=== PATIENT | male | born 1965 | race African-American/Black ===

== ENCOUNTER 2019-06-08 12:50 | Inpatient (IN) | payer MEDICAID, OTHER ==
[~2019-06-08] VITALS: Ht 185.4 cm; Wt 138.8 kg
[2019-06-08] MEDS ORDERED: MORPHINE SULFATE 4 MG/ML CPJ (NOT FOR IM USE) IV STA (14:34)
[2019-06-08] MEDS ORDERED: KETOROLAC 30MG/ML VIAL IV STA (14:34)
[2019-06-08 15:35] LABS: BASOPHILS % 0.7 % (0.0-2.0); EOSINOPHILS % 0.5 % (0.0-5.0); HEMATOCRIT. 45.3 % (42.0-52.0); HEMOGLOBIN. 15.4 g/dL (14.0-18.0); LYMPHOCYTES % 26.5 % (20.0-50.0); MEAN CORPUSCULAR HEMOGLOBIN 29.5 pg (28.0-32.0); MEAN CORPUSCULAR VOLUME 86.7 fL (80.0-94.0); MEAN PLATELET VOLUME 9.3 fl (7.4-10.4); MONOCYTES % 5.8 % (2.0-8.0); NEUTROPHILS % 66.5 % (40.0-76.0); PLATELET 239 x1000/uL (130-400); RED BLOOD CELL COUNT 5.22 mill/uL (4.7-6.1); RED CELL DISTRIBUTION WIDTH 13.6 % (11.6-14.6)
[2019-06-08 15:37] LABS: INR 1.1; PROTHROMBIN TIME 11.5 sec (9.6-11.0)
[2019-06-08 15:39] LABS: CHLORIDE 104 mEq/L (98-107)
[2019-06-08 15:48] LABS: CLARITY URINE CLEAR (CLEAR); COLOR URINE YELLOW (YELLOW); KETONES URINE 2+ (NEGATIVE); LEUKOCYTE ESTERASE URINE NEGATIVE (NEGATIVE); NITRITE URINE NEGATIVE (NEGATIVE); OCCULT BLOOD URINE NEGATIVE (NEGATIVE); PH URINE 8.5 (4.5-8.0); PROTEIN URINE 3+ (NEGATIVE)
[2019-06-08] MEDS ORDERED: MORPHINE SULFATE 4 MG/ML CPJ (NOT FOR IM USE) IV ONE (17:15)
[2019-06-08 21:50] VITALS: BP 118/115
[2019-06-08 22:07] VITALS: BP 161/113
[2019-06-09] VITALS: BP 178/122
[2019-06-09] MEDS ORDERED: LORAZEPAM 0.5MG TABLET PO PRN
[2019-06-09] MEDS: CLONIDINE 0.1MG TABLET PO PRN ×3 (00:23→23:57)
[2019-06-09] MEDS: HYDROCODONE/ACETAMINOPHEN 5/325MG TABLET PO PRN ×3 (00:24→10:43)
[2019-06-09 06:09] LABS: CHLORIDE 105 mEq/L (98-107)
[2019-06-09 06:21] LABS: BASOPHILS % 0.4 % (0.0-2.0); EOSINOPHILS % 0.9 % (0.0-5.0); HEMATOCRIT. 45.9 % (42.0-52.0); HEMOGLOBIN. 15.5 g/dL (14.0-18.0); LYMPHOCYTES % 25.9 % (20.0-50.0); MEAN CORPUSCULAR HEMOGLOBIN 29.5 pg (28.0-32.0); MEAN CORPUSCULAR VOLUME 87.3 fL (80.0-94.0); MEAN PLATELET VOLUME 9.6 fl (7.4-10.4); MONOCYTES % 7.8 % (2.0-8.0); PLATELET 227 x1000/uL (130-400); RED BLOOD CELL COUNT 5.26 mill/uL (4.7-6.1); RED CELL DISTRIBUTION WIDTH 13.6 % (11.6-14.6)
[2019-06-09 06:23] LABS: LDL CHOLESTEROL 178 mg/dL (5-100)
[2019-06-09 06:26] LABS: HDL CHOLESTEROL 39 mg/dL (40-59)
[2019-06-09] MEDS: AMLODIPINE 10MG TABLET PO SCH (07:31)
[2019-06-09 08:00] VITALS: BP 182/112
[2019-06-09] MEDS: ENOXAPARIN 40MG/0.4ML SYR SUBCUT SCH ×2 (08:48→21:01)
[2019-06-09] MEDS ORDERED: AMLODIPINE 10MG TABLET PO SCH (09:00)
[2019-06-09] MEDS ORDERED: MORPHINE SULFATE 2 MG/ML CPJ (NOT FOR IM USE) IV PRN (11:15)
[2019-06-09 12:00] VITALS: BP 178/98
[2019-06-09] MEDS: HYDROMORPHONE HCL/PF 2MG/ML CPJ IM PRN ×2 (12:50→20:36)
[2019-06-09] MEDS ORDERED: DEXTROSE 50% WATER 50ML SYRINGE IV PRN (13:45)
[2019-06-09 16:00] VITALS: BP 161/111
[2019-06-09] MEDS: BLOOD SUGAR DIAGNOSTIC STRIP TEST SCH ×2 (17:28→21:02)
[2019-06-09] MEDS: INSULIN LISPRO 100 UNITS/ML SUBCUT SCH ×2 (17:44→20:43)
[2019-06-09 20:00] VITALS: BP 141/93
[2019-06-10] VITALS: BP 177/120
[2019-06-10 04:00] VITALS: BP 161/110
[2019-06-10] MEDS: HYDROMORPHONE HCL/PF 2MG/ML CPJ IM PRN ×3 (04:55→20:50)
[2019-06-10] MEDS: BLOOD SUGAR DIAGNOSTIC STRIP TEST SCH ×4 (07:58→20:37)
[2019-06-10 08:00] VITALS: BP 156/104
[2019-06-10] MEDS: INSULIN LISPRO 100 UNITS/ML SUBCUT SCH ×4 (08:24→20:41)
[2019-06-10] MEDS: AMLODIPINE 10MG TABLET PO SCH (08:26)
[2019-06-10] MEDS: ENOXAPARIN 40MG/0.4ML SYR SUBCUT SCH ×2 (08:27→20:37)
[2019-06-10 12:00] VITALS: BP 155/100
[2019-06-10 16:00] VITALS: BP 168/92
[2019-06-10] MEDS: DEXAMETHASONE 4MG/ML 1ML VIAL IV SCH (18:10)
[2019-06-10 20:00] VITALS: BP 161/105
[2019-06-11] VITALS: BP 144/105
[2019-06-11] MEDS: HYDROMORPHONE HCL/PF 2MG/ML CPJ IM PRN ×5 (01:36→22:27)
[2019-06-11] MEDS: DEXAMETHASONE 4MG/ML 1ML VIAL IV SCH ×5 (01:37→23:10)
[2019-06-11 04:00] VITALS: BP 157/105
[2019-06-11] MEDS: BLOOD SUGAR DIAGNOSTIC STRIP TEST SCH ×4 (06:39→21:00)
[2019-06-11 08:00] VITALS: BP 172/103
[2019-06-11] MEDS: INSULIN LISPRO 100 UNITS/ML SUBCUT SCH ×4 (08:07→23:18)
[2019-06-11] MEDS: AMLODIPINE 10MG TABLET PO SCH (09:20)
[2019-06-11] MEDS: ENOXAPARIN 40MG/0.4ML SYR SUBCUT SCH ×2 (09:21→22:36)
[2019-06-11 12:00] VITALS: BP 143/98
[2019-06-11 16:00] VITALS: BP 130/88
[2019-06-11] MEDS: LISINOPRIL 5MG TABLET PO SCH (17:22)
[2019-06-11] MEDS: METFORMIN HCL 500MG TABLET PO SCH (17:43)
[2019-06-11] MEDS ORDERED: INSULIN GLARGINE UD 100 UNITS/ML SYR SUBCUT SCH (22:00)
[2019-06-11] MEDS: GABAPENTIN 100MG CAPSULE PO SCH (22:34)
[2019-06-11] MEDS: BACLOFEN 10MG TABLET PO SCH (22:35)
[2019-06-11] MEDS: ATORVASTATIN CALCIUM 20MG TABLET PO SCH (22:35)
[2019-06-11] MEDS: CLONIDINE 0.1MG TABLET PO PRN (22:35)
[2019-06-11] MEDS ORDERED: HYDROMORPHONE HCL/PF 2MG/ML CPJ IV PRN (23:45)
[2019-06-12] VITALS: BP 135/96
[2019-06-12 04:00] VITALS: BP 146/101
[2019-06-12] MEDS: BACLOFEN 10MG TABLET PO SCH ×3 (06:30→22:20)
[2019-06-12] MEDS: GABAPENTIN 100MG CAPSULE PO SCH ×3 (06:31→22:21)
[2019-06-12] MEDS: DEXAMETHASONE 4MG/ML 1ML VIAL IV SCH ×3 (06:31→18:03)
[2019-06-12] MEDS: INSULIN LISPRO 100 UNITS/ML SUBCUT SCH ×4 (06:56→23:17)
[2019-06-12] MEDS: BLOOD SUGAR DIAGNOSTIC STRIP TEST SCH ×4 (06:57→21:00)
[2019-06-12 08:00] VITALS: BP 129/83
[2019-06-12] MEDS: METFORMIN HCL 500MG TABLET PO SCH ×2 (08:49→18:03)
[2019-06-12] MEDS: LISINOPRIL 5MG TABLET PO SCH (08:50)
[2019-06-12] MEDS: ENOXAPARIN 40MG/0.4ML SYR SUBCUT SCH ×2 (08:50→22:22)
[2019-06-12] MEDS: AMLODIPINE 10MG TABLET PO SCH (08:50)
[2019-06-12] MEDS: HYDROCODONE/ACETAMINOPHEN 10/325MG TABLET PO PRN ×2 (11:22→18:04)
[2019-06-12 12:00] VITALS: BP 161/100
[2019-06-12] MEDS: INSULIN GLARGINE UD 100 UNITS/ML SYR SUBCUT SCH ×2 (12:49→22:29)
[2019-06-12 16:00] VITALS: BP 140/108
[2019-06-12 20:00] VITALS: BP 139/100
[2019-06-12] MEDS: ATORVASTATIN CALCIUM 20MG TABLET PO SCH (22:20)
[2019-06-13] VITALS: BP 157/94
[2019-06-13 04:00] VITALS: BP 147/96
[2019-06-13] MEDS: BACLOFEN 10MG TABLET PO SCH ×2 (06:44→14:00)
[2019-06-13] MEDS: GABAPENTIN 100MG CAPSULE PO SCH ×2 (06:44→14:00)
[2019-06-13] MEDS: BLOOD SUGAR DIAGNOSTIC STRIP TEST SCH ×2 (06:56→12:42)
[2019-06-13 08:00] VITALS: BP 148/101
[2019-06-13] MEDS: METFORMIN HCL 500MG TABLET PO SCH (08:09)
[2019-06-13] MEDS: INSULIN LISPRO 100 UNITS/ML SUBCUT SCH ×2 (08:09→13:31)
[2019-06-13] MEDS ORDERED: LISI-186 PO (09:31)
[2019-06-13] MEDS ORDERED: LANTUSUD SUBCUT (09:31)
[2019-06-13] MEDS ORDERED: BACL-141 PO (09:31)
[2019-06-13] MEDS ORDERED: METF500T PO (09:31)
[2019-06-13] MEDS ORDERED: GABA-529 PO (09:31)
[2019-06-13] MEDS ORDERED: ATOR20TA PO (09:31)
[2019-06-13] MEDS ORDERED: AMLO10TA80 PO (09:31)
[2019-06-13] MEDS: LISINOPRIL 5MG TABLET PO SCH (09:36)
[2019-06-13] MEDS: AMLODIPINE 10MG TABLET PO SCH (09:36)
[2019-06-13] MEDS: ENOXAPARIN 40MG/0.4ML SYR SUBCUT SCH (09:37)
[2019-06-13] MEDS: INSULIN GLARGINE UD 100 UNITS/ML SYR SUBCUT SCH (10:50)
[2019-06-13] MEDS: HYDROCODONE/ACETAMINOPHEN 10/325MG TABLET PO PRN (10:59)
[2019-06-13 11:35] VITALS: BP 148/101
[2019-06-13 12:00] VITALS: BP 123/85
== END 2019-06-13 15:00 | disposition home or self-care (01) | DRG 347 ==
LOC: ER 12:50 → 6EST 17:33 → ENRESERV 19:56 → 6EST 23:18
PROVIDERS: ADMIT Internal Medicine; ATTEND Internal Medicine
DX: M47.817 Spondylosis without myelopathy or radiculopathy, lumbosacral region (principal); E11.65 Type 2 diabetes mellitus with hyperglycemia; E78.5 Hyperlipidemia, unspecified; I10 Essential (primary) hypertension; M54.32 Sciatica, left side; M16.0 Bilateral primary osteoarthritis of hip; Z79.84 Long term (current) use of oral hypoglycemic drugs
CPT/HCPCS: 36415; 72100; 72148; 72170; 80048; 80061; 81003; 82962; 83036; 84443; 93971; 97162; 97166; 99285; J1100; J1170; J1650; J1815; J1885; J2270